=== PATIENT | female | born 1955 | race African-American/Black ===

== ENCOUNTER 2024-08-12 17:25 | Inpatient (IN) | payer OTHER ==
[~2024-08-12] VITALS: Ht 162.6 cm; Wt 64.9 kg
[2024-08-12] MEDS: PIPERACILLIN/TAZO 3.375G/50ML 50 ML IV SCH (09:00)
[2024-08-12] MEDS: DEXTROSE 50% WATER 50ML SYRINGE IV ONE (17:50)
[2024-08-12] MEDS: MORPHINE SULFATE 4 MG/ML INJ (FOR IV/IM USE) IV ONE (17:51)
[2024-08-12] MEDS: CEFTRIAXONE 1GM/50ML 50 ML IV ONE (17:52)
[2024-08-12] MEDS: SODIUM CHLORIDE 0.9% (SEPSIS BOLUS) IV ONE (18:05)
[2024-08-12 18:28] LABS: CHLORIDE 103 mEq/L (98-107); SODIUM 140 mEq/L (136-145)
[2024-08-12 18:29] LABS: CALCIUM 10.2 mg/dL (8.7-10.4)
[2024-08-12 18:33] LABS: BASOPHILS % 0.3 % (0.0-2.0); EOSINOPHILS % 0.2 % (0.0-5.0); HEMATOCRIT. 35.9 % (36.0-48.0); HEMOGLOBIN. 10.1 g/dL (12.0-16.0); LYMPHOCYTES % 22.7 % (20.0-50.0); MEAN CORPUSCULAR HEMOGLOBIN 33.5 pg (28.0-32.0); MEAN CORPUSCULAR VOLUME 119.8 fL (81.0-99.0); MEAN PLATELET VOLUME 9.1 fl (7.4-10.4); MONOCYTES % 6.7 % (2.0-8.0); NEUTROPHILS % 70.1 % (40.0-76.0); PLATELET 222 x1000/uL (130-400); RED CELL DISTRIBUTION WIDTH 14.7 % (11.6-14.6); WHITE BLOOD COUNT 15.3 x1000/uL (4.5-11.0)
[2024-08-12 18:34] LABS: GLUCOSE 63 mg/dL (70-105); UREA NITROGEN BLOOD 52 mg/dL (9-23)
[2024-08-12 18:35] LABS: TROPONIN I HIGH SENSITIVITY 23 ng/L (3.0-34)
[2024-08-12 18:36] LABS: ALANINE AMINOTRANSFERASE 29 IU/L (10-49); ALBUMIN 4.7 g/dL (3.2-4.8); ASPARTATE AMINOTRANSFERASE 53 IU/L (<34); BILIRUBIN DIRECT < 0.1 mg/dL (<=3.0); BILIRUBIN TOTAL 0.2 mg/dL (0.1-1.0); PROTEIN TOTAL 7.6 g/dL (6.0-8.3)
[2024-08-12 18:40] LABS: ADD RBC MORPHOLOGY YES; DIFFERENTIAL COMMENT 1
[2024-08-12 18:54] LABS: CARBON DIOXIDE < 10 mEq/L (21-32); POTASSIUM 6.2 mEq/L (3.5-5.1)
[2024-08-12 18:55] LABS: CREATININE 7.3 mg/dL (0.6-1.0)
[2024-08-12 18:56] LABS: LACTIC ACID 17.1 mmol/L (0.4-2.0); PLATELET ESTIMATE NORMAL
[2024-08-12] MEDS ORDERED: DIAZEPAM 5 MG/ML 2ML SYR IV ONE (19:00)
[2024-08-12] MEDS ORDERED: HYDROMORPHONE HCL/PF 2MG/ML INJ IV ONE (19:00)
[2024-08-12] MEDS: SODIUM BICARBONATE 8.4% 50MEQ/50ML SYR IV ONE (19:19)
[2024-08-12] MEDS: FUROSEMIDE 100MG/10ML VIAL IV STA (19:19)
[2024-08-12] MEDS: CALCIUM CHLORIDE 1GM/10ML SYR IV ONE (19:21)
[2024-08-12 19:27] LABS: CLARITY URINE CLEAR (CLEAR); COLOR URINE YELLOW (YELLOW); GLUCOSE URINE NEGATIVE (NEGATIVE); KETONES URINE 1+ (NEGATIVE); LEUKOCYTE ESTERASE URINE NEGATIVE (NEGATIVE); NITRITE URINE NEGATIVE (NEGATIVE); OCCULT BLOOD URINE TRACE (NEGATIVE); PH URINE 5.5 (4.5-8.0); PROTEIN URINE 2+ (NEGATIVE); SPECIFIC GRAVITY URINE 1.011 (1.005-1.030); UROBILINOGEN URINE 0.2 E.U./dL (0.2-1.0)
[2024-08-12 19:32] LABS: INR 1.2; PROTHROMBIN TIME 12.4 sec (9.6-11.0)
[2024-08-12 19:40] VITALS: PULSE 86; RESP 30; O2SAT 98
[2024-08-12] MEDS: ALBUTEROL (0.083%) 2.5MG/3ML NEB HHN ONE (19:40)
[2024-08-12] MEDS: HYDROMORPHONE HCL/PF 1MG/ML INJ IV SCH (19:43)
[2024-08-12 19:55] LABS: BACTERIA URINE NONE SEEN; RBC URINE 0-2 /hpf (0-2); SQUAMOUS EPITHELIAL CELL URINE FEW /lpf (RARE/1+); WBC URINE NONE SEEN /hpf (0-2)
[2024-08-12] MEDS: NOREPINEPHRINE 8MG/250ML PMX 250 ML IV ONE (20:44)
[2024-08-12 21:02] LABS: BG BASE EXCESS -33.6 mmol/L (-2.0-3.0); BG CARBOXYHEMOGLOBIN 0.6 % (0.5-1.5); BG DEOXYHEMOGLOBIN 2.1 % (0.0-5.0); BG FRACTION INSPIRED OXYGEN 28; BG HCO3 ACT 1.5 mmol/L (21.0-28.0); BG METHEMOGLOBIN 0.2 % (0.5-1.5); BG OXYGEN SATURATION 97.9 % (94.0-98.0); BG OXYHEMOGLOBIN 97.1 % (94.0-98.0); BG PCO2 13.4 mmHg (32.0-45.0); BG PH 6.658 (7.350-7.450); BG PO2 167.4 mmHg (83.0-108.0); BG SAMPLE SITE RIGHT RADIAL; BG TOTAL HEMOGLOBIN 8.6 g/dL (12.0-16.0); BG VENT MODE NASAL CANNULA
[2024-08-12] MEDS: SODIUM BICARBONATE 8.4% 50MEQ/50ML SYR IV NR (21:31)
[2024-08-12] MEDS: LORAZEPAM 2MG/ML UD SYRINGE IV SCH (21:57)
[2024-08-12] MEDS ORDERED: MAGNESIUM/ALUMINUM HYDROXIDE/SIMETHICONE 30ML UDC PO PRN (22:45)
[2024-08-12] MEDS ORDERED: DOCUSATE SODIUM 100MG CAPSULE PO PRN (22:45)
[2024-08-12] MEDS ORDERED: CLONIDINE 0.1MG TABLET PO PRN (22:45)
[2024-08-12] MEDS ORDERED: IPRATROPIUM/ALBUTEROL 0.5-3(2.5)MG/3ML NEB HHN PRN (22:45)
[2024-08-12] MEDS ORDERED: ACETAMINOPHEN 325MG TABLET PO PRN (22:45)
[2024-08-12] MEDS ORDERED: ONDANSETRON HCL 4MG/2ML INJ IV PRN (22:45)
[2024-08-12 23:30] VITALS: BP 125/98; PULSE 104; RESP 28; TEMP 35.8; O2SAT 99
[2024-08-12] MEDS ORDERED: NOREPINEPHRINE 8MG/250ML PMX 250 ML IV PRN (23:30)
[2024-08-12] MEDS ORDERED: NOREPINEPHRINE 8 MG in DEXT 5% WATER 242 ML IV PRN (23:30)
[2024-08-12 23:45] VITALS: BP 136/125; PULSE 97; RESP 25; O2SAT 100
[2024-08-12 23:56] LABS: CHLORIDE 105 mEq/L (98-107); SODIUM 142 mEq/L (136-145)
[2024-08-12 23:57] LABS: CALCIUM 10.1 mg/dL (8.7-10.4)
[2024-08-13] VITALS (79 sets, daily range): BP systolic 74–156; BP diastolic 38–109; PULSE 76–152; RESP 11–47; TEMP 35.8–36.7; O2SAT 97–100
[2024-08-13] MEDS ORDERED: DEXTROSE 50% WATER 50ML SYRINGE IV PRN
[2024-08-13 00:02] LABS: GLUCOSE 275 mg/dL (70-105); UREA NITROGEN BLOOD 55 mg/dL (9-23)
[2024-08-13 00:09] LABS: CREATININE 6.9 mg/dL (0.6-1.0)
[2024-08-13 00:10] LABS: T4 FREE 0.78 ng/dL (0.89-1.76); THYROID STIMULATING HORMONE 3.13 uIU/mL (0.55-4.78)
[2024-08-13 00:12] LABS: CARBON DIOXIDE < 10 mEq/L (21-32); PHOSPHORUS 10.4 mg/dL (2.5-4.9); POTASSIUM 6.2 mEq/L (3.5-5.1)
[2024-08-13 00:32] LABS: LACTIC ACID 18.9 mmol/L (0.4-2.0)
[2024-08-13] MEDS: BLOOD SUGAR DIAGNOSTIC STRIP TEST SCH ×2 (00:36→06:22)
[2024-08-13 00:43] LABS: VITAMIN B12 SERUM 2493 pg/mL (211-911)
[2024-08-13 00:44] LABS: FOLIC ACID (FOLATE) SERUM 43.43 ng/mL (>5.38)
[2024-08-13 00:58] LABS: HEPATITIS B SURFACE ANTIGEN NEGATIVE (Negative)
[2024-08-13] MEDS: SODIUM BICARBONATE 150 MEQ in DEXTROSE 5% WATER 850 ML IV SCH ×2 (01:03→10:21)
[2024-08-13] MEDS: INSULIN REGULAR (HUMULIN R) 1000UNITS/10ML VIAL IV SCH ×2 (01:03→08:30)
[2024-08-13] MEDS: DEXTROSE 50% WATER 50ML SYRINGE IV SCH ×2 (01:04→06:55)
[2024-08-13] MEDS: FUROSEMIDE 100MG/10ML VIAL IV SCH (01:04)
[2024-08-13] MEDS: CALCIUM CHLORIDE 1GM/10ML SYR IV SCH (01:04)
[2024-08-13] MEDS: VANCOMYCIN 1.75GM PMX (XELLIA) 350 ML IV SCH (01:04)
[2024-08-13 01:19] LABS: HEPATITIS A AB IGM NEGATIVE (Negative)
[2024-08-13 01:20] LABS: HEPATITIS B CORE AB IGM NEGATIVE (Negative); HEPATITIS C AB NON REACTIVE (Neg) (Negative)
[2024-08-13 01:55] LABS: CHLORIDE 103 mEq/L (98-107); SODIUM 142 mEq/L (136-145)
[2024-08-13 01:57] LABS: CALCIUM 10.8 mg/dL (8.7-10.4)
[2024-08-13 02:00] LABS: CARBON DIOXIDE < 10 mEq/L (21-32); POTASSIUM 6.5 mEq/L (3.5-5.1)
[2024-08-13 02:02] LABS: UREA NITROGEN BLOOD 46 mg/dL (9-23)
[2024-08-13 02:03] LABS: CREATINE KINASE 457 IU/L (34-145)
[2024-08-13 02:09] LABS: AMMONIA 155 uMol/L (<32)
[2024-08-13 02:15] LABS: CREATININE 6.7 mg/dL (0.6-1.0); GLUCOSE 441 mg/dL (70-105)
[2024-08-13] MEDS: LACTULOSE 20G/30ML UDC PO SCH (05:41)
[2024-08-13] MEDS: INSULIN LISPRO 100 UNITS/ML SUBCUT SCH ×3 (05:42→07:00)
[2024-08-13 05:49] LABS: *AMPHETAMINES SCREEN URINE NEGATIVE (NEGATIVE); *BARBITURATES SCREEN URINE NEGATIVE (NEGATIVE); *BENZODIAZEPINES SCREEN URINE NEGATIVE (NEGATIVE); *COCAINE SCREEN URINE NEGATIVE (NEGATIVE); CANNABINOID URINE SCREEN NEGATIVE (NEGATIVE); ECSTASY MDMA SCREEN URINE NEGATIVE (NEGATIVE); METHADONE URINE SCREEN NEGATIVE (NEGATIVE); OPIATES URINE SCREEN PRESUMPTIVE POSITIVE (NEGATIVE); PHENCYCLIDINE URINE SCREEN NEGATIVE (NEGATIVE)
[2024-08-13 05:51] LABS: HEMATOCRIT 31.5 % (36.0-48.0); HEMOGLOBIN 8.7 g/dL (12.0-16.0); MEAN CORPUSCULAR HEMOGLOBIN 34.8 pg (28.0-32.0); MEAN CORPUSCULAR HGB CONC 27.6 g/dL (31.0-37.0); MEAN CORPUSCULAR VOLUME 125.8 fL (81.0-99.0); PLATELET 181 x1000/uL (130-400); RED BLOOD CELL COUNT 2.51 mill/uL (4.2-5.4); RED CELL DISTRIBUTION WIDTH 13.9 % (11.6-14.6); WHITE BLOOD COUNT 18.6 x1000/uL (4.5-11.0)
[2024-08-13 05:59] LABS: CHLORIDE 99 mEq/L (98-107); POTASSIUM 6.1 mEq/L (3.5-5.1); SODIUM 142 mEq/L (136-145)
[2024-08-13 06:00] LABS: CALCIUM 10.4 mg/dL (8.7-10.4)
[2024-08-13 06:04] LABS: CREATINE KINASE MB FRACTION 9.2 ng/mL (0.5-3.6)
[2024-08-13 06:05] LABS: CHOLESTEROL 76 mg/dL (<200); LDL CHOLESTEROL 10 mg/dL (5-100); TRIGLYCERIDE 169 mg/dL (0-150); UREA NITROGEN BLOOD 50 mg/dL (9-23)
[2024-08-13 06:06] LABS: HDL CHOLESTEROL 33 mg/dL (>65)
[2024-08-13 06:11] LABS: CARBON DIOXIDE < 10 mEq/L (21-32); GLUCOSE 407 mg/dL (70-105)
[2024-08-13 06:12] LABS: CREATININE 6.7 mg/dL (0.6-1.0); PHOSPHORUS 10.9 mg/dL (2.5-4.9)
[2024-08-13] MEDS: SODIUM BICARBONATE 8.4% 50MEQ/50ML SYR IV NR (06:59)
[2024-08-13] MEDS: INSULIN REGULAR (HUMULIN R) 1000UNITS/10ML VIAL IV NR (06:59)
[2024-08-13] MEDS ORDERED: SODIUM CHLORIDE 0.9% 1,000 ML IV SCH ×2 (08:15→08:25)
[2024-08-13] MEDS: CALCIUM GLUCONATE 1GM PREMIX 50 ML IV ONE (09:00)
[2024-08-13 09:25] LABS: BG BASE EXCESS -20.4 mmol/L (-2.0-3.0); BG CARBOXYHEMOGLOBIN 0.6 % (0.5-1.5); BG DEOXYHEMOGLOBIN 1.5 % (0.0-5.0); BG FRACTION INSPIRED OXYGEN 28; BG HCO3 ACT 6.2 mmol/L (21.0-28.0); BG METHEMOGLOBIN 0.3 % (0.5-1.5); BG OXYGEN SATURATION 98.5 % (94.0-98.0); BG OXYHEMOGLOBIN 97.6 % (94.0-98.0); BG PCO2 17.1 mmHg (32.0-45.0); BG PH 7.175 (7.350-7.450); BG PO2 140.6 mmHg (83.0-108.0); BG SAMPLE SITE RIGHT RADIAL; BG TOTAL HEMOGLOBIN 7.9 g/dL (12.0-16.0); BG VENT MODE NASAL CANNULA
[2024-08-13] MEDS: PANTOPRAZOLE SODIUM 40 MG/VIAL IV SCH ×2 (10:22→21:22)
[2024-08-13] MEDS ORDERED: HEPARIN 1000 UNITS/ML 10ML ONE (10:32)
[2024-08-13 11:07] LABS: CHLORIDE 104 mEq/L (98-107); POTASSIUM 4.6 mEq/L (3.5-5.1); SODIUM 149 mEq/L (136-145)
[2024-08-13 11:08] LABS: CALCIUM 9.2 mg/dL (8.7-10.4)
[2024-08-13 11:13] LABS: GLUCOSE 378 mg/dL (70-105); UREA NITROGEN BLOOD 49 mg/dL (9-23)
[2024-08-13 11:20] LABS: CARBON DIOXIDE < 10 mEq/L (21-32); CREATININE 5.8 mg/dL (0.6-1.0)
[2024-08-13 14:09] LABS: TROPONIN I HIGH SENSITIVITY 253 ng/L (3.0-34)
[2024-08-13] MEDS: CLOPIDOGREL 75MG TABLET PO SCH (16:15)
[2024-08-13] MEDS ORDERED: AMIODARONE HCL 50MG/ML 9ML VIAL IV ONE (17:15)
[2024-08-13] MEDS ORDERED: AMIODARONE HCL 50MG/ML 3ML VIAL IV ONE (17:15)
[2024-08-13] MEDS ORDERED: AMIODARONE HCL 150 MG in DEXT 5% WATER 97 ML IV ONE (17:30)
[2024-08-13] MEDS ORDERED: AMIODARONE HCL 900 MG in DEXT 5% WATER 482 ML IV SCH (17:30)
[2024-08-13] MEDS: AMIODARONE 150MG/100ML PREMIX IV SCH (18:12)
[2024-08-13] MEDS: ASPIRIN 81MG TABLET NG SCH (18:13)
[2024-08-13] MEDS: AMIODARONE 360MG/200ML D5W PREMIX IV SCH (18:52)
[2024-08-13 19:18] LABS: POTASSIUM 3.4 mEq/L (3.5-5.1)
[2024-08-13 19:19] LABS: CALCIUM 9.4 mg/dL (8.7-10.4)
[2024-08-13 19:22] LABS: CREATINE KINASE MB FRACTION 17.2 ng/mL (0.5-3.6)
[2024-08-13 19:37] LABS: CREATININE 2.9 mg/dL (0.6-1.0)
[2024-08-13] MEDS: ATORVASTATIN CALCIUM 40MG TABLET PO SCH (21:23)
[2024-08-13] MEDS: ENOXAPARIN 60MG/0.6ML SYR SUBCUT SCH (21:23)
[2024-08-13] MEDS: GUAIFENESIN 200MG/10ML SUGAR FREE UDC PO PRN (22:24)
[2024-08-14] VITALS (92 sets, daily range): BP systolic 76–150; BP diastolic 48–118; PULSE 71–86; RESP 11–28; TEMP 36.6–37.2; O2SAT 88–100
[2024-08-14 01:47] LABS: TROPONIN I HIGH SENSITIVITY 277 ng/L (3.0-34)
[2024-08-14 06:11] LABS: BASOPHILS % 0.1 % (0.0-2.0); DIFFERENTIAL COMMENT 0; HEMATOCRIT. 27.6 % (36.0-48.0); HEMOGLOBIN. 9.2 g/dL (12.0-16.0); LYMPHOCYTES % 9.2 % (20.0-50.0); MEAN CORPUSCULAR HEMOGLOBIN 34.2 pg (28.0-32.0); MEAN CORPUSCULAR HGB CONC 33.3 g/dL (31.0-37.0); MEAN CORPUSCULAR VOLUME 102.5 fL (81.0-99.0); NEUTROPHILS % 82.7 % (40.0-76.0); PLATELET 132 x1000/uL (130-400); RED CELL DISTRIBUTION WIDTH 12.8 % (11.6-14.6)
[2024-08-14 06:26] LABS: AMMONIA < 17 uMol/L (<32)
[2024-08-14 06:32] LABS: CALCIUM 8.3 mg/dL (8.7-10.4); CARBON DIOXIDE 31 mEq/L (21-32); CHLORIDE 94 mEq/L (98-107); POTASSIUM 3.4 mEq/L (3.5-5.1); SODIUM 141 mEq/L (136-145)
[2024-08-14 06:37] LABS: CREATININE 2.8 mg/dL (0.6-1.0); GLUCOSE 269 mg/dL (70-105)
[2024-08-14 06:38] LABS: UREA NITROGEN BLOOD 16 mg/dL (9-23)
[2024-08-14 06:40] LABS: PHOSPHORUS 3.7 mg/dL (2.5-4.9)
[2024-08-14 06:51] LABS: LACTIC ACID 3.1 mmol/L (0.4-2.0)
[2024-08-14 07:28] LABS: TROPONIN I HIGH SENSITIVITY 227 ng/L (3.0-34)
[2024-08-14 09:00] LABS: BG BASE EXCESS 6.6 mmol/L (-2.0-3.0); BG CARBOXYHEMOGLOBIN 1.3 % (0.5-1.5); BG DEOXYHEMOGLOBIN 4.1 % (0.0-5.0); BG HCO3 ACT 29.9 mmol/L (21.0-28.0); BG METHEMOGLOBIN 0.3 % (0.5-1.5); BG OXYGEN SATURATION 95.8 % (94.0-98.0); BG OXYHEMOGLOBIN 94.3 % (94.0-98.0); BG PCO2 37.4 mmHg (32.0-45.0); BG SAMPLE SITE RIGHT RADIAL; BG TOTAL HEMOGLOBIN 9.5 g/dL (12.0-16.0); BG VENT MODE ROOM AIR
[2024-08-14] MEDS: SODIUM CHLORIDE 0.45% 1,000 ML IV ONE (09:16)
[2024-08-14] MEDS: MAGNESIUM 2 G PREMIX 50 ML IV ONE (09:16)
[2024-08-14] MEDS: POTASSIUM CHLORIDE 20MEQ/PACKET NG NR (09:16)
[2024-08-14 12:39] LABS: HEMATOCRIT 26.6 % (36.0-48.0); HEMOGLOBIN 9.1 g/dL (12.0-16.0)
[2024-08-14 13:55] LABS: CLARITY URINE CLEAR (CLEAR); COLOR URINE YELLOW (YELLOW); GLUCOSE URINE 1+ (NEGATIVE); KETONES URINE TRACE (NEGATIVE); LEUKOCYTE ESTERASE URINE NEGATIVE (NEGATIVE); NITRITE URINE NEGATIVE (NEGATIVE); OCCULT BLOOD URINE 3+ (NEGATIVE); PH URINE >=9.0 (4.5-8.0); PROTEIN URINE 2+ (NEGATIVE); SPECIFIC GRAVITY URINE 1.017 (1.005-1.030); UROBILINOGEN URINE 0.2 E.U./dL (0.2-1.0)
[2024-08-14 14:14] LABS: RBC URINE 50-100 /hpf (0-2); WBC URINE 0-2 /hpf (0-2)
[2024-08-14 14:15] LABS: BACTERIA URINE NONE SEEN; SQUAMOUS EPITHELIAL CELL URINE RARE /lpf (RARE/1+); YEAST URINE NONE SEEN
[2024-08-14] MEDS ORDERED: PHENOL/SODIUM PHENOLATE 1.4% SRPAY 177ML MM PRN (15:30)
[2024-08-14 15:52] LABS: INR 1.1; PARTIAL THROMBOPLASTIN TIME 24.8 sec (23.4-31.0); PROTHROMBIN TIME 11.6 sec (9.6-11.0)
[2024-08-14] MEDS: ACETAMINOPHEN 325MG TABLET PO PRN (20:31)
[2024-08-15] VITALS (36 sets, daily range): BP systolic 101–157; BP diastolic 50–81; PULSE 75–86; RESP 13–23; TEMP 36.7–37.1; O2SAT 92–100
[2024-08-15 06:49] LABS: BASOPHILS % 0.1 % (0.0-2.0); DIFFERENTIAL COMMENT 0; EOSINOPHILS % 0.3 % (0.0-5.0); HEMATOCRIT. 27.4 % (36.0-48.0); HEMOGLOBIN. 9.5 g/dL (12.0-16.0); LYMPHOCYTES % 12.8 % (20.0-50.0); MEAN CORPUSCULAR HGB CONC 34.7 g/dL (31.0-37.0); MEAN CORPUSCULAR VOLUME 100.9 fL (81.0-99.0); MEAN PLATELET VOLUME 9.2 fl (7.4-10.4); MONOCYTES % 7.9 % (2.0-8.0); NEUTROPHILS % 78.9 % (40.0-76.0); PLATELET 120 x1000/uL (130-400); RED BLOOD CELL COUNT 2.72 mill/uL (4.2-5.4); RED CELL DISTRIBUTION WIDTH 13.2 % (11.6-14.6); WHITE BLOOD COUNT 9.7 x1000/uL (4.5-11.0)
[2024-08-15 06:57] LABS: POTASSIUM 3.4 mEq/L (3.5-5.1)
[2024-08-15 06:58] LABS: CALCIUM 8.4 mg/dL (8.7-10.4)
[2024-08-15 07:12] LABS: ANTI-DNA DOUBLE STRANDED QUANT < 1 IU/mL (0-9); ANTI-NUCLEAR ANTIBODIES DIRECT Negative (Negative); COMPLEMENT C3 99 mg/dL (82-167); COMPLEMENT C4 28 mg/dL (12-38)
[2024-08-15] MEDS ORDERED: APIX5TAB PO (07:25)
[2024-08-15] MEDS ORDERED: PANT40TA51 PO (07:25)
[2024-08-15] MEDS ORDERED: ATOR40TA70 PO (07:25)
[2024-08-15] MEDS ORDERED: AMLO5TAB88 PO (07:25)
[2024-08-15] MEDS ORDERED: METF-416 PO (07:25)
[2024-08-15] MEDS ORDERED: METO25TA6 PO (07:25)
[2024-08-15] MEDS ORDERED: LISI20TA31 PO (07:25)
[2024-08-15 09:51] LABS: PHOSPHORUS 2.2 mg/dL (2.5-4.9)
[2024-08-15] MEDS: POTASSIUM CHLORIDE 20MEQ TABLET SR PO NR (10:10)
[2024-08-15] MEDS: AMIODARONE 200MG TABLET PO SCH (10:11)
[2024-08-15] MEDS: APIXABAN 5 MG TABLET PO SCH (12:21)
[2024-08-15] MEDS: POTASSIUM PHOSPHATE 15 MMOL in DEXT 5% WATER 245 ML IV ONE (13:52)
[2024-08-15] MEDS ORDERED: AMI2 PO (20:51)
[2024-08-16 13:10] LABS: ANTI-MYELOPEROXIDASE AB < 0.2 units (0.0-0.9); ANTI-PROTEINASE 3 ABS < 0.2 units (0.0-0.9)
[2024-08-16 14:11] LABS: CYTOPLASMIC C-ANCA <1:20 titer (Neg:<1:20); PERINUCLEAR P-ANCA <1:20 titer (Neg:<1:20)
== END 2024-08-15 22:02 | disposition short-term general hospital (02) | DRG 871 ==
LOC: ER 17:25 → CVICU 20:23 → EDBEDREQ 20:43 → EDBEDREQSVC 20:43 → EDBEDREQTM 20:43 → ENRESERV 21:30 → 3WST 08-15 11:35
PROVIDERS: ADMIT Internal Medicine; ATTEND Internal Medicine
PROC: 06HY33Z Insertion of Infusion Device into Lower Vein, Percutaneous Approach (ICD-10-PCS; 2024-08-12)
PROC: B54BZZA Ultrasonography of Right Lower Extremity Veins, Guidance (ICD-10-PCS; 2024-08-12)
PROC: 02H633Z Insertion of Infusion Device into Right Atrium, Percutaneous Approach (ICD-10-PCS; principal; 2024-08-13)
PROC: 5A1D70Z Performance of Urinary Filtration, Intermittent, Less than 6 Hours Per Day (ICD-10-PCS; 2024-08-13)
PROC: 4A10X4Z Monitoring of Central Nervous Electrical Activity, External Approach (ICD-10-PCS; 2024-08-14)
DX: A41.9 Sepsis, unspecified organism (principal); G92.8 Other toxic encephalopathy; R65.21 Severe sepsis with septic shock; I21.A1 Myocardial infarction type 2; R57.1 Hypovolemic shock; N17.0 Acute kidney failure with tubular necrosis; E87.20 Acidosis, unspecified; I69.351 Hemiplegia and hemiparesis following cerebral infarction affecting right dominant side; E72.20 Disorder of urea cycle metabolism, unspecified; E87.5 Hyperkalemia; D50.9 Iron deficiency anemia, unspecified; E78.5 Hyperlipidemia, unspecified; E83.39 Other disorders of phosphorus metabolism; E83.42 Hypomagnesemia; I12.9 Hypertensive chronic kidney disease with stage 1 through stage 4 chronic kidney disease, or unspecified chronic kidney disease; I48.0 Paroxysmal atrial fibrillation; N18.9 Chronic kidney disease, unspecified; I69.322 Dysarthria following cerebral infarction; R47.1 Dysarthria and anarthria; K52.9 Noninfective gastroenteritis and colitis, unspecified; E11.22 Type 2 diabetes mellitus with diabetic chronic kidney disease; E11.649 Type 2 diabetes mellitus with hypoglycemia without coma; R13.10 Dysphagia, unspecified; G35 Multiple sclerosis; G93.89 Other specified disorders of brain; Z98.84 Bariatric surgery status; Z79.84 Long term (current) use of oral hypoglycemic drugs; Z83.79 Family history of other diseases of the digestive system; Z88.2 Allergy status to sulfonamides; Z88.6 Allergy status to analgesic agent; Z90.49 Acquired absence of other specified parts of digestive tract; Z90.710 Acquired absence of both cervix and uterus
CPT/HCPCS: 36415; 36556; 36600; 71045; 71275; 74174; 74176; 76770; 76937; 80048; 80061; 80076; 80202; 80305; 80307; 80329; 81003; 82010; 82140; 82375; 82550; 82553; 82607; 82728; 82746; 82805; 82962; 83036; 83520; 83605; 83735; 83880; 84100; 84145; 84439; 84443; 84484; 85014; 85018; 85025; 85027; 85379; 85384; 86038; 86160; 86225; 86235; 86256; 86705; 86709; 86850; 86900; 87340; 90935; 92610; 93005; 93306; 93970; 94070; 94640; 94760; 95816; 97162; 97166; 97530; 98960; 99291; A4606; C1752; J0282; J0610; J0696; J1171; J1644; J1650; J1815; J1940; J2060; J2270; J2470; J2543; J3370; J3475; J3490; J7030; J7060; J7070